=== PATIENT | female | born 1950 | race Caucasian/White ===

== ENCOUNTER 2019-02-21 13:35 | Inpatient (IN) | payer MEDICARE, OTHER ==
[~2019-02-21] VITALS: Ht 165.1 cm; Wt 94.7 kg
[2019-02-21] MEDS: DILTIAZEM 125 MG in SODIUM CHLORIDE 0.9% 100 ML IV SCH ×2 (13:48→23:55)
[2019-02-21] MEDS ORDERED: DILTIAZEM 5 MG/ML, 5ML ONE (13:58)
[2019-02-21] MEDS ORDERED: SODIUM CHLORIDE 0.9% 1,000ML IVBOLUS ONE ×3 (14:00→17:30)
[2019-02-21] MEDS ORDERED: PLEASE ENTER HEIGHT AND WEIGHT MC SCH (14:00)
[2019-02-21] MEDS ORDERED: PLEASE ENTER ALLERGIES MC SCH (14:00)
[2019-02-21] MEDS ORDERED: DILTIAZEM 5 MG/ML, 5ML IV ONE (14:00)
[2019-02-21 14:18] LABS: MEAN CORPUSCULAR HEMOGLOBIN 26.5 pg (27.0-34.8); MEAN CORPUSCULAR HGB CONC 32.5 g/dL (32.4-35.8); MEAN CORPUSCULAR VOLUME 81.6 fL (80-100); MEAN PLATELET VOLUME 7.7 fL (7.4-10.4); PLATELET COUNT 258 x10^3/uL (130-400); RED BLOOD COUNT 5.15 x10^6/uL (3.82-5.3)
[2019-02-21 14:20] LABS: RAPID INFLUENZA A Negative (Negative); RAPID INFLUENZA B Negative (Negative)
[2019-02-21 14:24] LABS: INTERNATIONAL NORMALIZED RATIO 3.84 (0.93-1.1); PROTHROMBIN TIME 38.3 Seconds (9.6-11.5)
[2019-02-21 14:25] LABS: ALANINE AMINOTRANSFERASE 73 U/L (12-78); ALBUMIN 2.9 g/dL (3.4-5.0); ANION GAP 16 mmol/L (5-15); CALCIUM 8.1 mg/dL (8.5-10.1); CHLORIDE 112 mmol/L (98-107)
[2019-02-21 14:30] LABS: ALKALINE PHOSPHATASE 312 U/L (45-117); BILIRUBIN,TOTAL 0.8 mg/dL (0.2-1.0); TOTAL PROTEIN 6.8 g/dL (6.4-8.2); TROPONIN I < 0.015 ng/mL (0.000-0.045)
[2019-02-21 14:36] LABS: MD YES
[2019-02-21 14:40] LABS: BAND#(MANUAL) 1.34 x10^3/uL; BANDS%(MANUAL) 21 % (0-7); LYMPH#(MANUAL) 0.38 x10^3/uL (1-3.4); LYMPHS% (MANUAL) 6 % (22-44); MONOS#(MANUAL) 0.06 x10^3/uL (0.3-2.7); MONOS% (MANUAL) 1 % (2-9); SEG#(MANUAL) 4.61 x10^3/uL (1.8-6.8); SEGS% (MANUAL) 72 % (42-75)
[2019-02-21 14:41] LABS: <PLATELET ESTIMATE> ADEQUATE; <RBC MORPHOLOGY> NORMAL
[2019-02-21 14:42] LABS: <PLT MORPHOLOGY> NORMAL PLT MORPH
[2019-02-21] MEDS ORDERED: VANCOMYCIN PER PHARMACY MC ONE (15:00)
[2019-02-21] MEDS ORDERED: AZTREONAM 2 GM in SODIUM CHLORIDE 0.9% 100 ML IVPB ONE (15:00)
[2019-02-21] MEDS ORDERED: POTASSIUM CHLORIDE 20 MEQ TAB.ER.PRT PO ONE ×2 (15:00→17:00)
[2019-02-21] MEDS ORDERED: VANCOMYCIN 1,800 MG in SODIUM CHLORIDE 0.9% 250 ML IV ONE (15:00)
--- NOTE | 2019-02-21 15:14 | NUR ---
PT RESTING IN RNEY, ON 4L NC. FRIEND AT BEDSIDE. IVF AND IV CARDIZEM GTT INFUSING. PT UNABLE TO PROVIDE URINE SAMPLE, NOTIFIED, OBTAIN STRAIGHT CATH
[2019-02-21] MEDS ORDERED: POTASSIUM CHLORIDE 20 MEQ TAB.ER.PRT ONE (15:33)
--- NOTE | 2019-02-21 15:42 | NUR ---
IV ABX STARTED AFTER BC DRAWN
--- NOTE | 2019-02-21 15:42 | NUR ---
PT TO CT
--- NOTE | 2019-02-21 16:00 | NUR ---
BP 85/54, CARDIZEM GTT STOPPED. NOTIFIED, REMAINDER OF SEPSIS BOLUS STILL INFUSING. WCTM
[2019-02-21 16:01] LABS: MICROSCOPIC INDICATED
[2019-02-21 16:05] LABS: CULTURE INDICATED? YES
--- NOTE | 2019-02-21 17:09 | NUR ---
BP LOW AFTER SEPSIS BOLUS, ADMITTING MD AT BEDSIDE RECOMMENDING ICU. MD NOTIFIED. PT WILL ADMIT TO ICU
[2019-02-21] MEDS ORDERED: morphine SULFATE 10 MG/ML, 1ML IVPush PRN (17:30)
[2019-02-21] MEDS ORDERED: ACETAMINOPHEN 325 MG TABLET PO PRN (17:30)
--- NOTE | 2019-02-21 17:34 | NUR ---
PER PHARMACY OK TO RUN DILTIAZEM AND IV AZACTAM COMPATIBILY, PER PHARMACY RECOMMENDATION HOLD IV VANCO UNTIL IV AZACTAM DONE AND THEN INFUSE VANCO THEY ARE NOT COMPATIBLE.
--- NOTE | 2019-02-21 17:36 | NUR ---
IV ALMITAO , SENT BACK TO PHARMACY TO OBTAIN NEW BAG
--- NOTE | 2019-02-21 17:41 | NUR ---
2ND IV ESTABLISHED AND VANCO STARTED
[2019-02-21 17:45] LABS: CLOSTRIDIUM DIFFICILE ANTIGEN NEGATIVE; CLOSTRIDIUM DIFFICILE TOXIN NEGATIVE (Negative)
--- NOTE | 2019-02-21 17:50 | NUR ---
REPORT TO MARINA ZAVALA
[2019-02-21 18:38] VITALS: BP 101/71
[2019-02-21] MEDS: HEPARIN 5,000 UNITS/ML, 1ML SQ SCH (20:06)
[2019-02-21] MEDS: SODIUM CHLORIDE 0.9% 1,000 ML IV SCH (20:06)
[2019-02-22] MEDS: SODIUM CHLORIDE 0.9% 1,000 ML IV SCH ×5 (01:59→23:48)
[2019-02-22] MEDS ORDERED: TRAZODONE 50MG TABLET PO ONE (02:00)
[2019-02-22] MEDS: HEPARIN 5,000 UNITS/ML, 1ML SQ SCH (03:37)
[2019-02-22] MEDS: AZTREONAM 2 GM in DEXTROSE 5% 100 ML IV SCH ×2 (03:37→16:00)
[2019-02-22] MEDS ORDERED: ALBUTEROL/IPRATROPIUM 2.5MG/0.5MG, 3 ML ONE ×2 (03:54→04:17)
[2019-02-22 04:19] VITALS: BP 120/70
[2019-02-22 04:27] LABS: MEAN CORPUSCULAR HEMOGLOBIN 27.1 pg (27.0-34.8); MEAN CORPUSCULAR HGB CONC 32.6 g/dL (32.4-35.8); MEAN CORPUSCULAR VOLUME 83.1 fL (80-100); MEAN PLATELET VOLUME 8.2 fL (7.4-10.4); PLATELET COUNT 218 x10^3/uL (130-400); RED BLOOD COUNT 4.82 x10^6/uL (3.82-5.3); RED CELL DISTRIBUTION WIDTH 15.5 % (9.6-15.2)
[2019-02-22 04:29] LABS: ALANINE AMINOTRANSFERASE 146 U/L (12-78); ALBUMIN 2.4 g/dL (3.4-5.0); ANION GAP 7 mmol/L (5-15); CALCIUM 7.1 mg/dL (8.5-10.1); CHLORIDE 118 mmol/L (98-107)
[2019-02-22 04:30] LABS: ALKALINE PHOSPHATASE 147 U/L (45-117); BILIRUBIN,TOTAL 0.8 mg/dL (0.2-1.0); TOTAL PROTEIN 6.2 g/dL (6.4-8.2)
[2019-02-22 04:46] LABS: MD YES
[2019-02-22 04:59] LABS: BANDS%(MANUAL) 22 % (0-7); LYMPH#(MANUAL) 0.15 x10^3/uL (1-3.4); LYMPHS% (MANUAL) 1 % (22-44); METAMYELOCYTES% (MANUAL) 6 % (0-1); MONOS% (MANUAL) 2 % (2-9); MYELOCYTES# (MANUAL) 0.15 x10^3/uL (0-0); MYELOCYTES% (MANUAL) 1 % (0-0); PMNS WITH VACUOLES 2+; SEGS% (MANUAL) 68 % (42-75)
[2019-02-22 05:01] LABS: <PLATELET ESTIMATE> ADEQUATE; <PLT MORPHOLOGY> NORMAL PLT MORPH; <RBC MORPHOLOGY> NORMAL
[2019-02-22] MEDS ORDERED: PHARMACY MAY ADJ FOR RENAL FX MC PRN (05:30)
[2019-02-22] MEDS ORDERED: SODIUM CHLORIDE 0.9% 1,000ML IVBOLUS ONE ×3 (05:30→10:00)
[2019-02-22] MEDS ORDERED: VANCOMYCIN PER PHARMACY MC PRN (05:30)
[2019-02-22] MEDS ORDERED: ALBUTEROL/IPRATROPIUM 2.5MG/0.5MG, 3 ML NPPB ONE (05:30)
[2019-02-22] MEDS ORDERED: MAGNESIUM SULFATE PMX 2GM/50ML 50 ML IV ONE (05:30)
[2019-02-22] MEDS: METRONIDAZOLE PMX 500MG/100ML 100 ML IV SCH ×4 (06:03→23:48)
[2019-02-22 07:16] LABS: INTERNATIONAL NORMALIZED RATIO 9.41 (0.93-1.1); PROTHROMBIN TIME 90.6 Seconds (9.6-11.5)
[2019-02-22] MEDS ORDERED: PHYTONADIONE 10 MG/ML, 1ML SQ ONE (08:00)
[2019-02-22] MEDS ORDERED: ROCURONIUM 10 MG/ML,10ML ONE (08:00)
[2019-02-22] MEDS ORDERED: PROPOFOL 100 ML IV ONE (08:00)
[2019-02-22 09:02] LABS: O2 FLOW 6 L/min
[2019-02-22] MEDS ORDERED: NOREPINEPHRINE 1 MG/ML, 4ML ONE (09:33)
[2019-02-22] MEDS ORDERED: MIDAZOLAM 1 MG/ML, 5ML IVPush ONE (09:40)
[2019-02-22] MEDS: PROPOFOL 100 ML IV PRN ×3 (09:45→18:07)
[2019-02-22] MEDS: NOREPINEPHRINE 4 MG in SODIUM CHLORIDE 0.9% 246 ML IV PRN ×2 (09:45→23:47)
[2019-02-22 09:57] VITALS: BP 150/68
[2019-02-22] MEDS ORDERED: PHARMACOKINETIC CONSULTATION MC ONE (10:00)
[2019-02-22] MEDS ORDERED: PHARMACOKINETIC MONITORING MC PRN (10:00)
[2019-02-22 10:15] VITALS: BP 125/71
[2019-02-22] MEDS ORDERED: PHARMACY MAY ADJ FOR RENAL FX MC SCH (11:00)
[2019-02-22] MEDS ORDERED: SUCCINYLCHOLINE 20 MG/ML, 10ML IVPush ONE (11:00)
[2019-02-22] MEDS ORDERED: SENNA 176 MG/5 ML ORAL SOL NG PRN (11:00)
[2019-02-22] MEDS ORDERED: BISACODYL 10 MG SUPP PR PRN (11:00)
[2019-02-22] MEDS ORDERED: LIDOCAINE-MPF 1%, 2ML ENDO PRN (11:00)
[2019-02-22] MEDS ORDERED: SENNA/DOCUSATE TABLET NG PRN (11:00)
[2019-02-22] MEDS ORDERED: FAMOTIDINE 20 MG/2 ML IV SCH (11:00)
[2019-02-22] MEDS ORDERED: LACTULOSE 20 GM/30 ML UDC NG PRN (11:00)
[2019-02-22 11:15] VITALS: BP 101/63
[2019-02-22 11:47] LABS: FIO2 80 %
[2019-02-22] MEDS: ALBUTEROL/IPRATROPIUM 2.5MG/0.5MG, 3 ML INLINE SCH ×3 (14:12→22:30)
[2019-02-22] MEDS ORDERED: VANCOMYCIN 1,800 MG in SODIUM CHLORIDE 0.9% 250 ML IV SCH (22:00)
[2019-02-22] MEDS ORDERED: FILTER 0.22 MICRON FOR AMIODARONE IV PRN (22:30)
[2019-02-22] MEDS ORDERED: AMIODARONE 900 MG in DEXTROSE 5% 482 ML IV PRN (22:30)
[2019-02-23] MEDS: ALBUTEROL/IPRATROPIUM 2.5MG/0.5MG, 3 ML INLINE SCH ×6 (02:30→22:10)
[2019-02-23] MEDS: SODIUM CHLORIDE 0.9% 1,000 ML IV SCH ×5 (03:00→22:28)
[2019-02-23] MEDS: AZTREONAM 2 GM in DEXTROSE 5% 100 ML IV SCH ×2 (03:26→15:52)
[2019-02-23] MEDS: METRONIDAZOLE PMX 500MG/100ML 100 ML IV SCH ×4 (05:03→23:47)
[2019-02-23 05:21] LABS: INTERNATIONAL NORMALIZED RATIO 3.23 (0.93-1.1); PROTHROMBIN TIME 32.4 Seconds (9.6-11.5)
[2019-02-23 05:24] LABS: ALANINE AMINOTRANSFERASE 111 U/L (12-78); ANION GAP 11 mmol/L (5-15); CALCIUM 6.7 mg/dL (8.5-10.1); CHLORIDE 116 mmol/L (98-107)
[2019-02-23 05:26] LABS: ALKALINE PHOSPHATASE 152 U/L (45-117); BILIRUBIN,TOTAL 0.8 mg/dL (0.2-1.0); TOTAL PROTEIN 5.9 g/dL (6.4-8.2)
[2019-02-23 05:36] LABS: MEAN CORPUSCULAR HEMOGLOBIN 27.1 pg (27.0-34.8); MEAN CORPUSCULAR HGB CONC 32.6 g/dL (32.4-35.8); MEAN CORPUSCULAR VOLUME 83.3 fL (80-100); RED BLOOD COUNT 4.17 x10^6/uL (3.82-5.3); RED CELL DISTRIBUTION WIDTH 15.4 % (9.6-15.2)
[2019-02-23 05:57] LABS: MD YES; PLATELET COUNT 167 x10^3/uL (130-400)
[2019-02-23 05:58] LABS: BAND#(MANUAL) 2.38 x10^3/uL; BANDS%(MANUAL) 14 % (0-7); LYMPH#(MANUAL) 0.85 x10^3/uL (1-3.4); LYMPHS% (MANUAL) 5 % (22-44); METAMYELOCYTES# (MANUAL) 0.17 x10^3/uL (0-0); METAMYELOCYTES% (MANUAL) 1 % (0-1); MONOS#(MANUAL) 0.34 x10^3/uL (0.3-2.7); MONOS% (MANUAL) 2 % (2-9); SEG#(MANUAL) 13.26 x10^3/uL (1.8-6.8); SEGS% (MANUAL) 78 % (42-75)
[2019-02-23 05:59] LABS: ANISOCYTOSIS 1+; ECHINOCYTES 1+
[2019-02-23 06:00] VITALS: BP 134/71
[2019-02-23 06:00] LABS: <PLATELET ESTIMATE> ADEQUATE; <PLT MORPHOLOGY> NORMAL PLT MORPH; POLYCHROMASIA 1+
[2019-02-23 06:01] LABS: PMNS WITH VACUOLES 1+
[2019-02-23] MEDS: PROPOFOL 100 ML IV PRN ×2 (09:06→19:08)
[2019-02-23] MEDS: FAMOTIDINE 20 MG/2 ML IV SCH (09:06)
[2019-02-23] MEDS: ALBUMIN HUMAN 25% 50 ML IV SCH ×2 (11:08→19:42)
--- NOTE | 2019-02-23 11:45 | NUR ---
TF GOAL: w/ propofol: VITAL HIGH PROTEIN @ 55ml/hr off propofol: 60ml/hr
[2019-02-23] MEDS ORDERED: MIDAZOLAM 1 MG/ML, 2ML ONE (14:37)
[2019-02-23] MEDS ORDERED: FENTANYL PF 100 MCG/2ML ONE (14:37)
[2019-02-24] MEDS: PROPOFOL 100 ML IV PRN ×4 (01:28→19:42)
[2019-02-24] MEDS: ALBUTEROL/IPRATROPIUM 2.5MG/0.5MG, 3 ML INLINE SCH ×6 (02:40→22:03)
[2019-02-24] MEDS: AZTREONAM 2 GM in DEXTROSE 5% 100 ML IV SCH ×2 (02:56→15:43)
[2019-02-24 04:00] VITALS: BP 117/60
[2019-02-24] MEDS: ALBUMIN HUMAN 25% 50 ML IV SCH ×3 (04:25→19:41)
[2019-02-24 04:35] LABS: MEAN CORPUSCULAR HEMOGLOBIN 26.9 pg (27.0-34.8); MEAN CORPUSCULAR HGB CONC 32.6 g/dL (32.4-35.8); MEAN CORPUSCULAR VOLUME 82.3 fL (80-100); MEAN PLATELET VOLUME 8.8 fL (7.4-10.4); PLATELET COUNT 156 x10^3/uL (130-400); RED BLOOD COUNT 3.79 x10^6/uL (3.82-5.3); RED CELL DISTRIBUTION WIDTH 16.1 % (9.6-15.2)
[2019-02-24 04:47] LABS: ANION GAP 12 mmol/L (5-15); CALCIUM 6.8 mg/dL (8.5-10.1); CHLORIDE 115 mmol/L (98-107); CREATININE 3.74 mg/dL (0.55-1.02)
[2019-02-24 04:54] LABS: BASOPHILS # (AUTO) 0.02 x10^3/uL (0-0.1); BASOPHILS % (AUTO) 0 % (0-1); EOSINOPHILS # (AUTO) 0.13 x10^3/uL (0-0.4); EOSINOPHILS % (AUTO) 1 % (1-7); LYMPHOCYTES # (AUTO) 0.57 x10^3/uL (1-3.4); LYMPHOCYTES % (AUTO) 3 % (22-44); MD SCAN; MONOCYTES # (AUTO) 0.78 x10^3/uL (0.2-0.8); MONOCYTES % (AUTO) 4 % (2-9); NEUTROPHILS # (AUTO) 16.54 x10^3/uL (1.8-6.8); NEUTROPHILS % (AUTO) 92 % (42-75)
[2019-02-24] MEDS ORDERED: SODIUM BICARBONATE 1 MEQ/ML, 50ML VIAL ONE (05:10)
[2019-02-24 05:14] LABS: CREATINE KINASE, TOTAL 2222 U/L (26-192)
[2019-02-24] MEDS ORDERED: SODIUM BICARB 8.4%, 50ML SYRINGE IVPush ONE (05:30)
[2019-02-24] MEDS: METRONIDAZOLE PMX 500MG/100ML 100 ML IV SCH (05:35)
[2019-02-24] MEDS: SODIUM CHLORIDE 0.9% 1,000 ML IV SCH (08:29)
[2019-02-24] MEDS ORDERED: CALCIUM GLUCONATE 4.6 MEQ in SODIUM CHLORIDE 0.9% 50 ML IV ONE (08:30)
[2019-02-24] MEDS ORDERED: AMIODARONE 150 MG in DEXTROSE 5% 100 ML IV ONE (08:30)
[2019-02-24 08:43] LABS: INTERNATIONAL NORMALIZED RATIO 2.78 (0.93-1.1); PROTHROMBIN TIME 28.1 Seconds (9.6-11.5)
[2019-02-24] MEDS: KSCALE TO 4.5 IV SCH ×3 (09:26→21:30)
[2019-02-24] MEDS: FAMOTIDINE 20 MG/2 ML IV SCH (09:29)
[2019-02-24] MEDS ORDERED: POTASSIUM CHLORIDE 30 MEQ in SODIUM CHLORIDE 0.9% 100 ML IV ONE ×3 (10:00→22:30)
[2019-02-24] MEDS: SODIUM BICARBONATE 8.4% 150 MEQ in DEXTROSE 5% 1,000 ML IV SCH ×2 (10:04→20:29)
[2019-02-24] MEDS ORDERED: LEVO100T5 PO (14:43)
[2019-02-24] MEDS ORDERED: METO25TA35 PO (14:43)
[2019-02-24] MEDS ORDERED: OMEP10CA5 PO (14:43)
[2019-02-24] MEDS ORDERED: AMLO10TA8 PO (14:43)
[2019-02-24] MEDS ORDERED: WARF7.5T PO (14:43)
[2019-02-24] MEDS: AMIODARONE 900 MG in DEXTROSE 5% 482 ML IV PRN (20:42)
[2019-02-25] MEDS: ALBUTEROL/IPRATROPIUM 2.5MG/0.5MG, 3 ML INLINE SCH ×6 (01:40→23:00)
[2019-02-25] MEDS: KSCALE TO 4.5 IV SCH ×4 (03:30→21:30)
[2019-02-25] MEDS: AZTREONAM 2 GM in DEXTROSE 5% 100 ML IV SCH ×2 (03:57→15:51)
[2019-02-25 04:00] VITALS: BP 135/64
[2019-02-25 04:17] LABS: MEAN CORPUSCULAR HEMOGLOBIN 27.1 pg (27.0-34.8); MEAN CORPUSCULAR HGB CONC 32.4 g/dL (32.4-35.8); MEAN CORPUSCULAR VOLUME 83.4 fL (80-100); MEAN PLATELET VOLUME 8.8 fL (7.4-10.4); PLATELET COUNT 166 x10^3/uL (130-400); RED BLOOD COUNT 3.69 x10^6/uL (3.82-5.3); RED CELL DISTRIBUTION WIDTH 15.8 % (9.6-15.2)
[2019-02-25 04:24] LABS: INTERNATIONAL NORMALIZED RATIO 2.94 (0.93-1.1); PROTHROMBIN TIME 29.6 Seconds (9.6-11.5)
[2019-02-25 04:26] LABS: % IRON SATURATION 17 % (20-55); ALANINE AMINOTRANSFERASE 67 U/L (12-78); ALBUMIN 2.5 g/dL (3.4-5.0); ANION GAP 7 mmol/L (5-15); CALCIUM 7.2 mg/dL (8.5-10.1); CHLORIDE 114 mmol/L (98-107); CREATININE 3.35 mg/dL (0.55-1.02); IRON LEVEL 20 mcg/dL (50-170); TOTAL IRON BINDING CAPACITY 121 mcg/dL (250-450)
[2019-02-25 04:30] LABS: ALKALINE PHOSPHATASE 130 U/L (45-117); BILIRUBIN,TOTAL 1.4 mg/dL (0.2-1.0); CREATINE KINASE, TOTAL 874 U/L (26-192); TRIGLYCERIDES 212 mg/dL (50-200)
[2019-02-25 04:35] LABS: BASOPHILS # (AUTO) 0.01 x10^3/uL (0-0.1); BASOPHILS % (AUTO) 0 % (0-1); EOSINOPHILS # (AUTO) 0.19 x10^3/uL (0-0.4); EOSINOPHILS % (AUTO) 2 % (1-7); LYMPHOCYTES # (AUTO) 0.74 x10^3/uL (1-3.4); LYMPHOCYTES % (AUTO) 6 % (22-44); MD SCAN; MONOCYTES % (AUTO) 2 % (2-9); NEUTROPHILS # (AUTO) 11.42 x10^3/uL (1.8-6.8); NEUTROPHILS % (AUTO) 90 % (42-75)
[2019-02-25] MEDS: ALBUMIN HUMAN 25% 50 ML IV SCH ×3 (04:39→22:15)
[2019-02-25] MEDS ORDERED: POTASSIUM CHLORIDE PMX 100 ML IV ONE ×4 (05:00→23:00)
[2019-02-25] MEDS: SODIUM BICARBONATE 8.4% 150 MEQ in DEXTROSE 5% 1,000 ML IV SCH ×2 (07:47→18:46)
[2019-02-25] MEDS ORDERED: POTASSIUM PHOSPHATE 22 MEQ in SODIUM CHLORIDE 0.9% 250 ML IV ONE (08:30)
[2019-02-25] MEDS ORDERED: MAGNESIUM SULFATE 1 GM in SODIUM CHLORIDE 0.9% 50 ML IV ONE (08:30)
[2019-02-25] MEDS: PROPOFOL 100 ML IV PRN ×3 (08:48→22:16)
[2019-02-25] MEDS: FAMOTIDINE 20 MG/2 ML IV SCH (08:48)
[2019-02-25] MEDS: FENTANYL PF 100 MCG/2ML IVPush PRN ×3 (16:37→23:38)
[2019-02-25] MEDS ORDERED: LABETALOL 5MG/ML, 20ML IVPush PRN (18:30)
[2019-02-25] MEDS ORDERED: hydrALAzine 20 MG/ML, 1ML IV PRN (18:30)
[2019-02-26] MEDS: PROPOFOL 100 ML IV PRN ×3 (02:46→17:28)
[2019-02-26] MEDS: ALBUTEROL/IPRATROPIUM 2.5MG/0.5MG, 3 ML INLINE SCH ×6 (03:00→22:12)
[2019-02-26] MEDS: KSCALE TO 4.5 IV SCH (03:30)
[2019-02-26] MEDS: AMIODARONE 900 MG in DEXTROSE 5% 482 ML IV PRN (04:16)
[2019-02-26] MEDS: AZTREONAM 2 GM in DEXTROSE 5% 100 ML IV SCH ×2 (04:21→15:22)
[2019-02-26] MEDS: ALBUMIN HUMAN 25% 50 ML IV SCH (04:23)
[2019-02-26 04:42] VITALS: BP 135/65
[2019-02-26 04:53] LABS: ANION GAP 4 mmol/L (5-15); CALCIUM 7.1 mg/dL (8.5-10.1); CHLORIDE 103 mmol/L (98-107); CREATININE 2.59 mg/dL (0.55-1.02)
[2019-02-26 05:12] LABS: MEAN CORPUSCULAR HEMOGLOBIN 27.7 pg (27.0-34.8); MEAN CORPUSCULAR HGB CONC 33.8 g/dL (32.4-35.8); MEAN CORPUSCULAR VOLUME 81.9 fL (80-100); MEAN PLATELET VOLUME 9.1 fL (7.4-10.4); PLATELET COUNT 156 x10^3/uL (130-400); RED BLOOD COUNT 3.26 x10^6/uL (3.82-5.3); RED CELL DISTRIBUTION WIDTH 16.1 % (9.6-15.2)
[2019-02-26 06:02] LABS: MD YES
[2019-02-26 06:05] LABS: ANISOCYTOSIS 1+; BANDS%(MANUAL) 2 % (0-7); EOS% (MANUAL) 2 % (1-7); LYMPH#(MANUAL) 0.81 x10^3/uL (1-3.4); LYMPHS% (MANUAL) 8 % (22-44); METAMYELOCYTES% (MANUAL) 2 % (0-1); MONOS#(MANUAL) 0.51 x10^3/uL (0.3-2.7); MONOS% (MANUAL) 5 % (2-9); MYELOCYTES% (MANUAL) 1 % (0-0); NRBC % (MANUAL) 1 % (0-1); SEG#(MANUAL) 8.08 x10^3/uL (1.8-6.8); SEGS% (MANUAL) 80 % (42-75)
[2019-02-26 06:06] LABS: <PLATELET ESTIMATE> ADEQUATE; <PLT MORPHOLOGY> NORMAL PLT MORPH
[2019-02-26] MEDS: SODIUM BICARBONATE 8.4% 150 MEQ in DEXTROSE 5% 1,000 ML IV SCH (06:16)
[2019-02-26] MEDS ORDERED: SODIUM PHOSPHATE 10 MMOL in SODIUM CHLORIDE 0.9% 500 ML IV ONE (07:00)
[2019-02-26] MEDS ORDERED: MAGNESIUM SULFATE PMX 4GM/100M 100 ML IV ONE (07:00)
[2019-02-26] MEDS: SODIUM CHLORIDE 0.9% 1,000 ML IV SCH (07:47)
[2019-02-26] MEDS: FAMOTIDINE 20 MG/2 ML IV SCH (08:36)
[2019-02-26] MEDS: AMIODARONE 200 MG TABLET NG SCH ×2 (08:37→21:12)
[2019-02-26] MEDS ORDERED: FUROSEMIDE 40 MG/4 ML IV ONE (09:00)
[2019-02-27] MEDS: PROPOFOL 100 ML IV PRN ×2 (01:09→06:15)
[2019-02-27] MEDS: ALBUTEROL/IPRATROPIUM 2.5MG/0.5MG, 3 ML INLINE SCH ×2 (03:00→06:42)
[2019-02-27 04:00] VITALS: BP 123/61
[2019-02-27 05:06] LABS: ANION GAP 5 mmol/L (5-15); CALCIUM 9.1 mg/dL (8.5-10.1); CHLORIDE 110 mmol/L (98-107); CREATININE 2.51 mg/dL (0.55-1.02)
[2019-02-27 05:16] LABS: MEAN CORPUSCULAR HEMOGLOBIN 26.7 pg (27.0-34.8); MEAN CORPUSCULAR HGB CONC 32.7 g/dL (32.4-35.8); MEAN CORPUSCULAR VOLUME 81.8 fL (80-100); MEAN PLATELET VOLUME 8.9 fL (7.4-10.4); PLATELET COUNT 219 x10^3/uL (130-400); RED BLOOD COUNT 3.68 x10^6/uL (3.82-5.3); RED CELL DISTRIBUTION WIDTH 16.2 % (9.6-15.2)
[2019-02-27] MEDS: AZTREONAM 2 GM in DEXTROSE 5% 100 ML IV SCH ×2 (05:18→15:49)
[2019-02-27] MEDS: SODIUM CHLORIDE 0.9% 1,000 ML IV SCH ×2 (05:19→20:46)
[2019-02-27 05:52] LABS: MD YES
[2019-02-27 05:53] LABS: BANDS%(MANUAL) 4 % (0-7); LYMPH#(MANUAL) 1.26 x10^3/uL (1-3.4); LYMPHS% (MANUAL) 10 % (22-44); METAMYELOCYTES# (MANUAL) 0.13 x10^3/uL (0-0); METAMYELOCYTES% (MANUAL) 1 % (0-1); SEG#(MANUAL) 9.58 x10^3/uL (1.8-6.8); SEGS% (MANUAL) 76 % (42-75)
[2019-02-27 05:54] LABS: <PLATELET ESTIMATE> ADEQUATE; <PLT MORPHOLOGY> NORMAL PLT MORPH; ANISOCYTOSIS 1+; EOS% (MANUAL) 4 % (1-7); MONOS#(MANUAL) 0.63 x10^3/uL (0.3-2.7); MONOS% (MANUAL) 5 % (2-9)
[2019-02-27] MEDS: AMIODARONE 200 MG TABLET NG SCH ×2 (08:37→20:42)
[2019-02-27] MEDS: FAMOTIDINE 20 MG/2 ML IV SCH (08:37)
[2019-02-27 09:54] LABS: INTERNATIONAL NORMALIZED RATIO 1.1 (0.93-1.1); PROTHROMBIN TIME 11.5 Seconds (9.6-11.5)
[2019-02-27] MEDS: ENOXAPARIN 100 MG/ML SQ SCH (10:36)
[2019-02-28] MEDS: DOXYLAMINE 25MG TABLET PO PRN ×2 (01:39→21:01)
[2019-02-28] MEDS: AZTREONAM 2 GM in DEXTROSE 5% 100 ML IV SCH ×2 (03:34→17:08)
[2019-02-28 04:00] VITALS: BP 146/71
[2019-02-28 04:26] LABS: MEAN CORPUSCULAR HEMOGLOBIN 26.8 pg (27.0-34.8); MEAN CORPUSCULAR HGB CONC 32.6 g/dL (32.4-35.8); MEAN CORPUSCULAR VOLUME 82.3 fL (80-100); MEAN PLATELET VOLUME 8.9 fL (7.4-10.4); PLATELET COUNT 278 x10^3/uL (130-400); RED BLOOD COUNT 3.82 x10^6/uL (3.82-5.3); RED CELL DISTRIBUTION WIDTH 15.9 % (9.6-15.2)
[2019-02-28 04:34] LABS: ANION GAP 8 mmol/L (5-15); CALCIUM 9.1 mg/dL (8.5-10.1); CHLORIDE 109 mmol/L (98-107); CREATININE 2.15 mg/dL (0.55-1.02)
[2019-02-28 04:39] LABS: MD YES
[2019-02-28 04:41] LABS: ANISOCYTOSIS 1+; BAND#(MANUAL) 0.42 x10^3/uL; BANDS%(MANUAL) 3 % (0-7); EOS#(MANUAL) 0.56 x10^3/uL (0.0-0.4); EOS% (MANUAL) 4 % (1-7); LYMPHS% (MANUAL) 18 % (22-44); METAMYELOCYTES# (MANUAL) 0.28 x10^3/uL (0-0); METAMYELOCYTES% (MANUAL) 2 % (0-1); MONOS#(MANUAL) 0.97 x10^3/uL (0.3-2.7); MONOS% (MANUAL) 7 % (2-9); MYELOCYTES# (MANUAL) 0.28 x10^3/uL (0-0); MYELOCYTES% (MANUAL) 2 % (0-0); SEGS% (MANUAL) 64 % (42-75)
[2019-02-28 04:42] LABS: <PLATELET ESTIMATE> ADEQUATE; LARGE PLATELETS 1+
[2019-02-28] MEDS ORDERED: MAGNESIUM SULFATE PMX 4GM/100M 100 ML IV ONE (07:00)
[2019-02-28] MEDS: ENOXAPARIN 100 MG/ML SQ SCH (07:50)
[2019-02-28] MEDS: AMIODARONE 200 MG TABLET NG SCH ×2 (07:50→21:01)
[2019-02-28] MEDS: FAMOTIDINE 20 MG/2 ML IV SCH (07:51)
[2019-02-28 10:28] VITALS: BP 139/84
[2019-02-28 15:15] VITALS: BP 148/87
[2019-02-28] MEDS ORDERED: WARFARIN 7.5 MG TABLET PO-COUM ONE (18:00)
[2019-02-28 18:53] VITALS: BP 152/93
[2019-03-01 02:18] VITALS: BP 152/81
[2019-03-01] MEDS: AZTREONAM 2 GM in DEXTROSE 5% 100 ML IV SCH ×2 (04:37→16:03)
[2019-03-01 05:50] LABS: INTERNATIONAL NORMALIZED RATIO 1.01 (0.93-1.1); PROTHROMBIN TIME 10.6 Seconds (9.6-11.5)
[2019-03-01 07:40] VITALS: BP 147/88
[2019-03-01] MEDS ORDERED: MAGNESIUM SULFATE PMX 4GM/100M 100 ML IV ONE ×2 (08:00→18:00)
[2019-03-01] MEDS: CARVEDILOL 3.125 MG TABLET PO SCH ×2 (09:03→18:20)
[2019-03-01] MEDS: LACTOBACILLUS CHEW TABLET PO SCH ×3 (09:04→20:05)
[2019-03-01] MEDS: AMIODARONE 200 MG TABLET NG SCH ×2 (09:04→20:05)
[2019-03-01] MEDS: FAMOTIDINE 20 MG/2 ML IV SCH (09:05)
[2019-03-01] MEDS: ENOXAPARIN 100 MG/ML SQ SCH (09:05)
[2019-03-01 14:55] VITALS: BP 121/85
[2019-03-01] MEDS ORDERED: WARFARIN 10 MG TABLET PO-COUM ONE (18:00)
[2019-03-01 18:15] VITALS: BP 115/81
[2019-03-01 18:40] VITALS: BP 136/84
[2019-03-01] MEDS: DOXYLAMINE 25MG TABLET PO PRN (20:05)
[2019-03-02 02:55] VITALS: BP 132/82
[2019-03-02] MEDS: AZTREONAM 2 GM in DEXTROSE 5% 100 ML IV SCH ×2 (04:03→15:40)
[2019-03-02] MEDS: CARVEDILOL 3.125 MG TABLET PO SCH ×2 (04:04→17:21)
[2019-03-02 06:04] LABS: INTERNATIONAL NORMALIZED RATIO 1.1 (0.93-1.1); PROTHROMBIN TIME 11.5 Seconds (9.6-11.5)
[2019-03-02 06:08] LABS: MEAN CORPUSCULAR HEMOGLOBIN 26.4 pg (27.0-34.8); MEAN CORPUSCULAR HGB CONC 32.2 g/dL (32.4-35.8); MEAN CORPUSCULAR VOLUME 82.1 fL (80-100); MEAN PLATELET VOLUME 8.6 fL (7.4-10.4); PLATELET COUNT 344 x10^3/uL (130-400); RED BLOOD COUNT 3.93 x10^6/uL (3.82-5.3); RED CELL DISTRIBUTION WIDTH 15.5 % (9.6-15.2)
[2019-03-02 06:12] LABS: ANION GAP 8 mmol/L (5-15); CALCIUM 8.9 mg/dL (8.5-10.1); CHLORIDE 107 mmol/L (98-107)
[2019-03-02 06:13] LABS: % IRON SATURATION 25 % (20-55); CREATININE 1.57 mg/dL (0.55-1.02); IRON LEVEL 36 mcg/dL (50-170); TOTAL IRON BINDING CAPACITY 145 mcg/dL (250-450)
[2019-03-02 06:30] LABS: MD YES
[2019-03-02 06:32] LABS: ANISOCYTOSIS 1+; BAND#(MANUAL) 0.15 x10^3/uL; BANDS%(MANUAL) 1 % (0-7); BASOS#(MANUAL) 0.15 x10^3/uL (0-0.1); BASOS% (MANUAL) 1 % (0-1); EOS#(MANUAL) 0.44 x10^3/uL (0.0-0.4); EOS% (MANUAL) 3 % (1-7); LYMPH#(MANUAL) 2.21 x10^3/uL (1-3.4); LYMPHS% (MANUAL) 15 % (22-44); METAMYELOCYTES# (MANUAL) 0.29 x10^3/uL (0-0); METAMYELOCYTES% (MANUAL) 2 % (0-1); MONOS#(MANUAL) 0.44 x10^3/uL (0.3-2.7); MONOS% (MANUAL) 3 % (2-9); MYELOCYTES# (MANUAL) 0.44 x10^3/uL (0-0); MYELOCYTES% (MANUAL) 3 % (0-0); SEG#(MANUAL) 10.58 x10^3/uL (1.8-6.8); SEGS% (MANUAL) 72 % (42-75)
[2019-03-02 06:33] LABS: <PLATELET ESTIMATE> ADEQUATE; <PLT MORPHOLOGY> NORMAL PLT MORPH
[2019-03-02 07:45] VITALS: BP 133/78
[2019-03-02] MEDS ORDERED: POTASSIUM CHLORIDE 20 MEQ TAB.ER.PRT PO ONE (08:00)
[2019-03-02 08:35] VITALS: BP 123/85
[2019-03-02] MEDS: FAMOTIDINE 20 MG TABLET PO SCH (08:37)
[2019-03-02] MEDS: AMIODARONE 200 MG TABLET NG SCH ×2 (08:37→21:26)
[2019-03-02] MEDS: LACTOBACILLUS CHEW TABLET PO SCH ×3 (08:37→21:26)
[2019-03-02] MEDS: ENOXAPARIN 100 MG/ML SQ SCH ×2 (08:42→21:26)
[2019-03-02 12:58] VITALS: BP 152/83
[2019-03-02 17:20] VITALS: BP 167/97
[2019-03-02] MEDS ORDERED: WARFARIN 10 MG TABLET PO-COUM ONE (18:00)
[2019-03-02 19:44] VITALS: BP 144/82
[2019-03-02] MEDS: DOXYLAMINE 25MG TABLET PO PRN (21:26)
[2019-03-03 02:48] VITALS: BP 144/80
[2019-03-03] MEDS: AZTREONAM 2 GM in DEXTROSE 5% 100 ML IV SCH ×2 (03:54→16:22)
[2019-03-03] MEDS: CARVEDILOL 3.125 MG TABLET PO SCH ×2 (03:56→17:55)
[2019-03-03 05:12] LABS: BASOPHILS # (AUTO) 0.07 x10^3/uL (0-0.1); BASOPHILS % (AUTO) 1 % (0-1); EOSINOPHILS # (AUTO) 0.36 x10^3/uL (0-0.4); EOSINOPHILS % (AUTO) 3 % (1-7); LYMPHOCYTES # (AUTO) 1.49 x10^3/uL (1-3.4); LYMPHOCYTES % (AUTO) 12 % (22-44); MD NO; MEAN CORPUSCULAR HEMOGLOBIN 26.7 pg (27.0-34.8); MEAN CORPUSCULAR HGB CONC 31.9 g/dL (32.4-35.8); MEAN CORPUSCULAR VOLUME 83.9 fL (80-100); MEAN PLATELET VOLUME 9.1 fL (7.4-10.4); MONOCYTES # (AUTO) 0.88 x10^3/uL (0.2-0.8); MONOCYTES % (AUTO) 7 % (2-9); NEUTROPHILS # (AUTO) 10.16 x10^3/uL (1.8-6.8); NEUTROPHILS % (AUTO) 78 % (42-75); PLATELET COUNT 399 x10^3/uL (130-400); RED BLOOD COUNT 3.84 x10^6/uL (3.82-5.3); RED CELL DISTRIBUTION WIDTH 15.6 % (9.6-15.2)
[2019-03-03 05:18] LABS: INTERNATIONAL NORMALIZED RATIO 1.49 (0.93-1.1); PROTHROMBIN TIME 15.4 Seconds (9.6-11.5)
[2019-03-03 05:27] LABS: CHLORIDE 107 mmol/L (98-107)
[2019-03-03 05:32] LABS: ANION GAP 9 mmol/L (5-15); CALCIUM 8.9 mg/dL (8.5-10.1); CREATININE 1.54 mg/dL (0.55-1.02)
[2019-03-03 06:42] VITALS: BP 158/87
[2019-03-03] MEDS: FAMOTIDINE 20 MG TABLET PO SCH (09:04)
[2019-03-03] MEDS: LACTOBACILLUS CHEW TABLET PO SCH ×3 (09:05→21:48)
[2019-03-03] MEDS: AMIODARONE 200 MG TABLET NG SCH ×2 (09:05→21:48)
[2019-03-03] MEDS: ENOXAPARIN 100 MG/ML SQ SCH ×2 (09:06→21:47)
[2019-03-03] MEDS ORDERED: WARFARIN 10 MG TABLET PO-COUM ONE (18:00)
[2019-03-03] MEDS ORDERED: WARFARIN 5 MG TABLET PO-COUM ONE (18:00)
[2019-03-03] MEDS: POTASSIUM CHLORIDE 20 MEQ TAB.ER.PRT PO SCH (18:00)
[2019-03-03 18:05] VITALS: BP 148/87
[2019-03-03 18:50] VITALS: BP 153/79
[2019-03-03] MEDS: DOXYLAMINE 25MG TABLET PO PRN (22:22)
[2019-03-04 00:52] VITALS: BP 156/83
[2019-03-04] MEDS: AZTREONAM 2 GM in DEXTROSE 5% 100 ML IV SCH ×2 (03:39→16:03)
[2019-03-04 05:21] LABS: BASOPHILS # (AUTO) 0.07 x10^3/uL (0-0.1); BASOPHILS % (AUTO) 1 % (0-1); EOSINOPHILS # (AUTO) 0.28 x10^3/uL (0-0.4); EOSINOPHILS % (AUTO) 2 % (1-7); LYMPHOCYTES # (AUTO) 1.39 x10^3/uL (1-3.4); LYMPHOCYTES % (AUTO) 12 % (22-44); MD NO; MEAN CORPUSCULAR HEMOGLOBIN 26.9 pg (27.0-34.8); MEAN CORPUSCULAR HGB CONC 32.4 g/dL (32.4-35.8); MEAN CORPUSCULAR VOLUME 82.9 fL (80-100); MEAN PLATELET VOLUME 8.6 fL (7.4-10.4); MONOCYTES # (AUTO) 0.79 x10^3/uL (0.2-0.8); MONOCYTES % (AUTO) 7 % (2-9); NEUTROPHILS # (AUTO) 9.57 x10^3/uL (1.8-6.8); NEUTROPHILS % (AUTO) 79 % (42-75); PLATELET COUNT 425 x10^3/uL (130-400); RED BLOOD COUNT 3.91 x10^6/uL (3.82-5.3); RED CELL DISTRIBUTION WIDTH 15.6 % (9.6-15.2)
[2019-03-04 05:25] VITALS: BP 167/100
[2019-03-04] MEDS: CARVEDILOL 3.125 MG TABLET PO SCH (05:29)
[2019-03-04 05:30] LABS: ALANINE AMINOTRANSFERASE 44 U/L (12-78); ALBUMIN 2.6 g/dL (3.4-5.0); ANION GAP 7 mmol/L (5-15); CALCIUM 8.9 mg/dL (8.5-10.1); CHLORIDE 107 mmol/L (98-107); CREATININE 1.44 mg/dL (0.55-1.02)
[2019-03-04 05:33] LABS: ALKALINE PHOSPHATASE 261 U/L (45-117); BILIRUBIN,TOTAL 0.7 mg/dL (0.2-1.0); TOTAL PROTEIN 7.1 g/dL (6.4-8.2)
[2019-03-04 06:16] LABS: INTERNATIONAL NORMALIZED RATIO 1.76 (0.93-1.1); PROTHROMBIN TIME 18.1 Seconds (9.6-11.5)
[2019-03-04 06:43] VITALS: BP 177/87
[2019-03-04] MEDS: POTASSIUM CHLORIDE 20 MEQ TAB.ER.PRT PO SCH ×2 (10:14→17:23)
[2019-03-04] MEDS: AMIODARONE 200 MG TABLET PO SCH ×2 (10:16→21:29)
[2019-03-04] MEDS: LACTOBACILLUS CHEW TABLET PO SCH ×3 (10:16→21:29)
[2019-03-04] MEDS: AMLODIPINE 10 MG TAB PO SCH (10:17)
[2019-03-04] MEDS: FAMOTIDINE 20 MG TABLET PO SCH (10:17)
[2019-03-04] MEDS: SODIUM CHLORIDE 0.9% 1,000 ML IV SCH ×2 (10:23→21:29)
[2019-03-04] MEDS: ENOXAPARIN 100 MG/ML SQ SCH ×2 (10:25→21:29)
[2019-03-04 12:32] VITALS: BP 170/81
[2019-03-04] MEDS: ACETAMINOPHEN 325 MG TABLET PO PRN ×2 (16:13→21:37)
[2019-03-04] MEDS: CARVEDILOL 6.25 MG TABLET PO SCH (17:23)
[2019-03-04] MEDS ORDERED: WARFARIN 10 MG TABLET PO-COUM SCH (18:00)
[2019-03-04 20:12] VITALS: BP 155/85
[2019-03-04] MEDS: DOXYLAMINE 25MG TABLET PO PRN (22:20)
[2019-03-05 02:01] VITALS: BP 155/81
[2019-03-05] MEDS: AZTREONAM 2 GM in DEXTROSE 5% 100 ML IV SCH ×2 (03:56→16:33)
[2019-03-05] MEDS: SODIUM CHLORIDE 0.9% 1,000 ML IV SCH (05:23)
[2019-03-05] MEDS: CARVEDILOL 6.25 MG TABLET PO SCH ×2 (05:23→17:19)
[2019-03-05] MEDS: ACETAMINOPHEN 325 MG TABLET PO PRN ×2 (05:25→16:33)
[2019-03-05 05:29] VITALS: BP 169/90
[2019-03-05 06:02] LABS: BASOPHILS % (AUTO) 1 % (0-1); EOSINOPHILS # (AUTO) 0.24 x10^3/uL (0-0.4); EOSINOPHILS % (AUTO) 2 % (1-7); LYMPHOCYTES # (AUTO) 1.07 x10^3/uL (1-3.4); LYMPHOCYTES % (AUTO) 8 % (22-44); MD NO; MEAN CORPUSCULAR HEMOGLOBIN 26.4 pg (27.0-34.8); MEAN CORPUSCULAR HGB CONC 32.4 g/dL (32.4-35.8); MEAN CORPUSCULAR VOLUME 81.5 fL (80-100); MEAN PLATELET VOLUME 8.5 fL (7.4-10.4); MONOCYTES # (AUTO) 0.78 x10^3/uL (0.2-0.8); MONOCYTES % (AUTO) 6 % (2-9); NEUTROPHILS # (AUTO) 10.84 x10^3/uL (1.8-6.8); NEUTROPHILS % (AUTO) 83 % (42-75); PLATELET COUNT 507 x10^3/uL (130-400); RED BLOOD COUNT 3.94 x10^6/uL (3.82-5.3); RED CELL DISTRIBUTION WIDTH 16.2 % (9.6-15.2)
[2019-03-05 06:16] LABS: ALBUMIN 2.7 g/dL (3.4-5.0); ANION GAP 14 mmol/L (5-15); CALCIUM 8.5 mg/dL (8.5-10.1); CHLORIDE 107 mmol/L (98-107)
[2019-03-05 06:21] LABS: ALANINE AMINOTRANSFERASE 41 U/L (12-78); ALKALINE PHOSPHATASE 252 U/L (45-117); BILIRUBIN,TOTAL 0.5 mg/dL (0.2-1.0); TOTAL PROTEIN 7.4 g/dL (6.4-8.2)
[2019-03-05 06:49] VITALS: BP 169/96
[2019-03-05] MEDS: AMIODARONE 200 MG TABLET PO SCH ×2 (08:26→20:27)
[2019-03-05] MEDS: FAMOTIDINE 20 MG TABLET PO SCH (08:26)
[2019-03-05] MEDS: POTASSIUM CHLORIDE 20 MEQ TAB.ER.PRT PO SCH ×2 (08:26→16:33)
[2019-03-05] MEDS: LACTOBACILLUS CHEW TABLET PO SCH ×3 (08:27→20:27)
[2019-03-05] MEDS: AMLODIPINE 10 MG TAB PO SCH (08:27)
[2019-03-05 08:29] LABS: INTERNATIONAL NORMALIZED RATIO 3.26 (0.93-1.1); PROTHROMBIN TIME 32.7 Seconds (9.6-11.5)
[2019-03-05] MEDS: SODIUM CHLORIDE 0.45% 1,000 ML IV SCH (11:57)
[2019-03-05 12:41] VITALS: BP 175/87
[2019-03-05 17:21] VITALS: BP 129/84
[2019-03-05] MEDS ORDERED: WARFARIN 1 MG TABLET PO-COUM SCH (18:00)
[2019-03-05] MEDS: DOXYLAMINE 25MG TABLET PO PRN (20:27)
[2019-03-06] MEDS: DOXYLAMINE 25MG TABLET PO PRN ×2 (02:01→21:17)
[2019-03-06] MEDS: AZTREONAM 2 GM in DEXTROSE 5% 100 ML IV SCH ×2 (02:01→17:20)
[2019-03-06 02:03] VITALS: BP 154/86
[2019-03-06] MEDS: ACETAMINOPHEN 325 MG TABLET PO PRN ×3 (02:35→17:20)
[2019-03-06] MEDS: CARVEDILOL 6.25 MG TABLET PO SCH ×2 (05:41→17:11)
[2019-03-06 06:56] LABS: BASOPHILS # (AUTO) 0.08 x10^3/uL (0-0.1); BASOPHILS % (AUTO) 1 % (0-1); EOSINOPHILS # (AUTO) 0.23 x10^3/uL (0-0.4); EOSINOPHILS % (AUTO) 2 % (1-7); LYMPHOCYTES # (AUTO) 0.95 x10^3/uL (1-3.4); LYMPHOCYTES % (AUTO) 8 % (22-44); MD NO; MEAN CORPUSCULAR HEMOGLOBIN 26.1 pg (27.0-34.8); MEAN CORPUSCULAR HGB CONC 31.7 g/dL (32.4-35.8); MEAN CORPUSCULAR VOLUME 82.4 fL (80-100); MEAN PLATELET VOLUME 8.6 fL (7.4-10.4); MONOCYTES # (AUTO) 0.86 x10^3/uL (0.2-0.8); MONOCYTES % (AUTO) 7 % (2-9); NEUTROPHILS # (AUTO) 9.75 x10^3/uL (1.8-6.8); NEUTROPHILS % (AUTO) 82 % (42-75); PLATELET COUNT 487 x10^3/uL (130-400); RED BLOOD COUNT 3.58 x10^6/uL (3.82-5.3); RED CELL DISTRIBUTION WIDTH 16.4 % (9.6-15.2)
[2019-03-06 07:04] LABS: INTERNATIONAL NORMALIZED RATIO 3.36 (0.93-1.1); PROTHROMBIN TIME 33.7 Seconds (9.6-11.5)
[2019-03-06 07:06] LABS: ALANINE AMINOTRANSFERASE 31 U/L (12-78); ALBUMIN 2.4 g/dL (3.4-5.0); ANION GAP 6 mmol/L (5-15); CALCIUM 8.3 mg/dL (8.5-10.1); CHLORIDE 111 mmol/L (98-107); CREATININE 1.22 mg/dL (0.55-1.02)
[2019-03-06 07:09] LABS: ALKALINE PHOSPHATASE 207 U/L (45-117); BILIRUBIN,TOTAL 0.5 mg/dL (0.2-1.0); TOTAL PROTEIN 6.9 g/dL (6.4-8.2)
[2019-03-06 08:33] VITALS: BP 131/72
[2019-03-06] MEDS: SODIUM CHLORIDE 0.45% 1,000 ML IV SCH ×3 (08:33→17:19)
[2019-03-06] MEDS: FAMOTIDINE 20 MG TABLET PO SCH (08:33)
[2019-03-06] MEDS: AMLODIPINE 10 MG TAB PO SCH (08:33)
[2019-03-06] MEDS: POTASSIUM CHLORIDE 20 MEQ TAB.ER.PRT PO SCH ×2 (08:33→17:19)
[2019-03-06] MEDS: LACTOBACILLUS CHEW TABLET PO SCH ×3 (08:33→21:17)
[2019-03-06] MEDS: AMIODARONE 200 MG TABLET PO SCH ×2 (08:34→21:17)
[2019-03-06 12:42] VITALS: BP 167/97
[2019-03-06] MEDS ORDERED: WARFARIN 1 MG TABLET PO-COUM SCH (18:00)
[2019-03-07] MEDS: DOXYLAMINE 25MG TABLET PO PRN ×3 (00:13→21:09)
[2019-03-07] MEDS: SODIUM CHLORIDE 0.45% 1,000 ML IV SCH ×2 (03:21→13:09)
[2019-03-07] MEDS: ACETAMINOPHEN 325 MG TABLET PO PRN ×3 (03:21→17:48)
[2019-03-07] MEDS: AZTREONAM 2 GM in DEXTROSE 5% 100 ML IV SCH ×2 (03:29→15:57)
[2019-03-07 03:41] LABS: BASOPHILS # (AUTO) 0.09 x10^3/uL (0-0.1); BASOPHILS % (AUTO) 1 % (0-1); EOSINOPHILS % (AUTO) 4 % (1-7); LYMPHOCYTES # (AUTO) 1.33 x10^3/uL (1-3.4); LYMPHOCYTES % (AUTO) 13 % (22-44); MD NO; MEAN CORPUSCULAR HGB CONC 32.2 g/dL (32.4-35.8); MEAN PLATELET VOLUME 8.6 fL (7.4-10.4); MONOCYTES # (AUTO) 0.87 x10^3/uL (0.2-0.8); MONOCYTES % (AUTO) 8 % (2-9); NEUTROPHILS % (AUTO) 75 % (42-75); PLATELET COUNT 594 x10^3/uL (130-400); RED BLOOD COUNT 3.61 x10^6/uL (3.82-5.3); RED CELL DISTRIBUTION WIDTH 16.7 % (9.6-15.2)
[2019-03-07 03:50] LABS: INTERNATIONAL NORMALIZED RATIO 2.89 (0.93-1.1); PROTHROMBIN TIME 29.1 Seconds (9.6-11.5)
[2019-03-07 03:52] LABS: CHLORIDE 111 mmol/L (98-107)
[2019-03-07 03:53] LABS: ALANINE AMINOTRANSFERASE 28 U/L (12-78); ALBUMIN 2.4 g/dL (3.4-5.0); ANION GAP 5 mmol/L (5-15); CALCIUM 8.1 mg/dL (8.5-10.1); CREATININE 1.16 mg/dL (0.55-1.02)
[2019-03-07 03:55] LABS: ALKALINE PHOSPHATASE 195 U/L (45-117); BILIRUBIN,TOTAL 0.5 mg/dL (0.2-1.0); TOTAL PROTEIN 6.9 g/dL (6.4-8.2)
[2019-03-07 07:41] VITALS: BP 146/88
[2019-03-07] MEDS: CARVEDILOL 6.25 MG TABLET PO SCH ×2 (08:53→17:48)
[2019-03-07] MEDS: AMIODARONE 200 MG TABLET PO SCH ×2 (08:53→19:58)
[2019-03-07] MEDS: FAMOTIDINE 20 MG TABLET PO SCH (08:53)
[2019-03-07] MEDS: AMLODIPINE 10 MG TAB PO SCH (08:53)
[2019-03-07] MEDS: POTASSIUM CHLORIDE 20 MEQ TAB.ER.PRT PO SCH ×2 (08:53→17:48)
[2019-03-07] MEDS: LACTOBACILLUS CHEW TABLET PO SCH ×3 (08:53→19:58)
[2019-03-07 14:19] VITALS: BP 136/87
[2019-03-07] MEDS ORDERED: WARFARIN 7.5 MG TABLET PO-COUM SCH (18:00)
[2019-03-07 19:57] VITALS: BP 124/67
[2019-03-08] MEDS: SODIUM CHLORIDE 0.45% 1,000 ML IV SCH ×2 (01:39→11:23)
[2019-03-08] MEDS: AZTREONAM 2 GM in DEXTROSE 5% 100 ML IV SCH (03:35)
[2019-03-08 03:40] VITALS: BP 134/80
[2019-03-08] MEDS: CARVEDILOL 6.25 MG TABLET PO SCH (06:09)
[2019-03-08 06:23] LABS: BASOPHILS # (AUTO) 0.13 x10^3/uL (0-0.1); BASOPHILS % (AUTO) 2 % (0-1); EOSINOPHILS # (AUTO) 0.52 x10^3/uL (0-0.4); EOSINOPHILS % (AUTO) 6 % (1-7); LYMPHOCYTES # (AUTO) 1.38 x10^3/uL (1-3.4); LYMPHOCYTES % (AUTO) 15 % (22-44); MD NO; MEAN CORPUSCULAR HGB CONC 32.3 g/dL (32.4-35.8); MEAN CORPUSCULAR VOLUME 83.8 fL (80-100); MEAN PLATELET VOLUME 8.6 fL (7.4-10.4); MONOCYTES # (AUTO) 0.78 x10^3/uL (0.2-0.8); MONOCYTES % (AUTO) 8 % (2-9); NEUTROPHILS # (AUTO) 6.46 x10^3/uL (1.8-6.8); NEUTROPHILS % (AUTO) 70 % (42-75); PLATELET COUNT 674 x10^3/uL (130-400); RED BLOOD COUNT 3.69 x10^6/uL (3.82-5.3); RED CELL DISTRIBUTION WIDTH 16.6 % (9.6-15.2)
[2019-03-08] MEDS: ACETAMINOPHEN 325 MG TABLET PO PRN (06:28)
[2019-03-08 06:30] LABS: INTERNATIONAL NORMALIZED RATIO 3.19 (0.93-1.1)
[2019-03-08 06:34] LABS: ALANINE AMINOTRANSFERASE 27 U/L (12-78); ALBUMIN 2.5 g/dL (3.4-5.0); ANION GAP 9 mmol/L (5-15); CALCIUM 8.5 mg/dL (8.5-10.1); CHLORIDE 111 mmol/L (98-107); CREATININE 1.17 mg/dL (0.55-1.02)
[2019-03-08 06:36] LABS: ALKALINE PHOSPHATASE 180 U/L (45-117); BILIRUBIN,TOTAL 0.5 mg/dL (0.2-1.0); TOTAL PROTEIN 7.2 g/dL (6.4-8.2)
[2019-03-08 06:55] VITALS: BP 167/102
[2019-03-08] MEDS: POTASSIUM CHLORIDE 20 MEQ TAB.ER.PRT PO SCH (08:06)
[2019-03-08] MEDS: FAMOTIDINE 20 MG TABLET PO SCH (08:06)
[2019-03-08] MEDS: AMIODARONE 200 MG TABLET PO SCH (08:06)
[2019-03-08] MEDS: AMLODIPINE 10 MG TAB PO SCH (08:07)
[2019-03-08] MEDS: LACTOBACILLUS CHEW TABLET PO SCH (08:07)
[2019-03-08] MEDS ORDERED: CEFDINIR 300 MG CAPSULE PO SCH (11:00)
[2019-03-08 13:04] VITALS: BP 143/78
[2019-03-08] MEDS ORDERED: CEFD300C37 PO (16:00)
[2019-03-08] MEDS ORDERED: AMIO200T42 PO (16:00)
[2019-03-08] MEDS ORDERED: CARV6.2512 PO (16:00)
[2019-03-08] MEDS ORDERED: WARFARIN 2.5 MG TABLET PO-COUM ONE (18:00)
== END 2019-03-08 17:10 | disposition home health service (06) | DRG 870 ==
LOC: ED 15:10 → EDIP 16:41 → CCU 18:17 → 4WST 02-28 10:26 → DCLOUNGE 03-08 16:55
PROVIDERS: ADMIT Internal Medicine Infectious Disease; ATTEND Internal Medicine
PROC: 5A1955Z Respiratory Ventilation, Greater than 96 Consecutive Hours (ICD-10-PCS; 2019-02-22)
PROC: 0BH18EZ Insertion of Endotracheal Airway into Trachea, Via Natural or Artificial Opening Endoscopic (ICD-10-PCS; 2019-02-22)
PROC: 30233K1 Transfusion of Nonautologous Frozen Plasma into Peripheral Vein, Percutaneous Approach (ICD-10-PCS; 2019-02-22)
PROC: 0T9780Z Drainage of Left Ureter with Drainage Device, Via Natural or Artificial Opening Endoscopic (ICD-10-PCS; 2019-02-23)
PROC: 0T773DZ Dilation of Left Ureter with Intraluminal Device, Percutaneous Approach (ICD-10-PCS; principal; 2019-02-23 15:00)
PROC: 02HV33Z Insertion of Infusion Device into Superior Vena Cava, Percutaneous Approach (ICD-10-PCS; 2019-03-02)
PROC: B5181ZA Fluoroscopy of Superior Vena Cava using Low Osmolar Contrast, Guidance (ICD-10-PCS; 2019-03-02)
PROC: B548ZZA Ultrasonography of Superior Vena Cava, Guidance (ICD-10-PCS; 2019-03-02)
DX: A41.51 Sepsis due to Escherichia coli [E. coli] (principal); J96.01 Acute respiratory failure with hypoxia; R65.21 Severe sepsis with septic shock; E43 Unspecified severe protein-calorie malnutrition; N17.0 Acute kidney failure with tubular necrosis; K52.1 Toxic gastroenteritis and colitis; I48.19 Other persistent atrial fibrillation; B17.9 Acute viral hepatitis, unspecified; D68.69 Other thrombophilia; J81.1 Chronic pulmonary edema; J98.11 Atelectasis; N13.6 Pyonephrosis; Z99.11 Dependence on respirator [ventilator] status; Z88.0 Allergy status to penicillin; Z88.8 Allergy status to other drugs, medicaments and biological substances; D64.9 Anemia, unspecified; Z68.34 Body mass index [BMI] 34.0-34.9, adult; E83.39 Other disorders of phosphorus metabolism; E83.42 Hypomagnesemia; E83.51 Hypocalcemia; E86.0 Dehydration; E87.6 Hypokalemia; E87.70 Fluid overload, unspecified; I12.9 Hypertensive chronic kidney disease with stage 1 through stage 4 chronic kidney disease, or unspecified chronic kidney disease; I25.10 Atherosclerotic heart disease of native coronary artery without angina pectoris; K72.90 Hepatic failure, unspecified without coma; L89.899 Pressure ulcer of other site, unspecified stage; N18.9 Chronic kidney disease, unspecified; T36.95XA Adverse effect of unspecified systemic antibiotic, initial encounter; Y92.89 Other specified places as the place of occurrence of the external cause; Z79.01 Long term (current) use of anticoagulants; Z88.1 Allergy status to other antibiotic agents
CPT/HCPCS: 36415; 36430; 36573; 36600; 71045; 71250; 74018; 74176; 76000; 76770; 80048; 80053; 80074; 81001; 82330; 82550; 82607; 82803; 83540; 83550; 83605; 83735; 84100; 84132; 84145; 84436; 84443; 84478; 84484; 85025; 85610; 85730; 86850; 86900; 87040; 87046; 87070; 87077; 87081; 87086; 87186; 87205; 87324; 87400; 87427; 89055; 93005; 93306; 94002; 94003; 94150; 94640; 96361; 96365; 96375; G0378; J0610; J1644; J1650; J1940; J2250; J2704; J3010; J3370; J3430; J3475; J3480; J7070; J7620; P9047; C1751; C1769; C2617; J0282; J0330; J3490; J7030; J7040; J7050; J7060; P9017